=== PATIENT | male | born 1990 | race African-American/Black ===

== ENCOUNTER 2020-01-09 20:45 | Emergency (ER) | payer MEDICAID ==
[~2020-01-09] VITALS: Ht 167.6 cm; Wt 73.0 kg
[2020-01-09 20:55] VITALS: BP 120/61
== END 2020-01-10 00:46 | disposition left against medical advice (07) ==
LOC: ER 20:45
DX: Z53.21 Procedure and treatment not carried out due to patient leaving prior to being seen by health care provider (principal)

== ENCOUNTER 2020-01-11 08:06 | Emergency (ER) | payer MEDICAID ==
[~2020-01-11] VITALS: Ht 167.6 cm; Wt 76.0 kg
[2020-01-11 08:14] VITALS: BP 136/80
== END 2020-01-11 09:15 | disposition home or self-care (01) ==
LOC: ER 08:24
DX: B85.2 Pediculosis, unspecified (principal)
CPT/HCPCS: 99282

== ENCOUNTER 2020-01-20 08:49 | Emergency (ER) | payer MEDICAID ==
[~2020-01-20] VITALS: Ht 167.6 cm; Wt 70.0 kg
[2020-01-20 08:54] VITALS: BP 110/89
== END 2020-01-20 09:43 | disposition home or self-care (01) ==
LOC: ER 08:49
DX: R21 Rash and other nonspecific skin eruption (principal)
CPT/HCPCS: 99283